=== PATIENT | male | born 1960 | race African-American/Black ===

== ENCOUNTER 2020-10-17 20:43 | Emergency (ER) | payer OTHER, SELFPAY ==
[2020-10-17] MEDS ORDERED: Lidocaine 4% Cream 5 GM TUBE w/ Tegaderm ONE (21:48)
== END 2020-10-17 23:54 | disposition left against medical advice (07) ==
LOC: MADERS 20:43
DX: S81.011A Laceration without foreign body, right knee, initial encounter (principal); S10.91XA Abrasion of unspecified part of neck, initial encounter; F17.210 Nicotine dependence, cigarettes, uncomplicated; I10 Essential (primary) hypertension; V89.2XXA Person injured in unspecified motor-vehicle accident, traffic, initial encounter
CPT/HCPCS: 70450; 71045; 72125; G0390

== ENCOUNTER 2020-10-19 09:58 | Emergency (ER) | payer OTHER, SELFPAY ==
[2020-10-19] MEDS ORDERED: HYDROcodone/Acetaminophen 5/325 mg Tablet ONE (11:33)
[2020-10-19] MEDS ORDERED: Sulfameth/Trimethoprim DS 800-160mg TAB ONE (11:44)
== END 2020-10-19 12:17 | disposition home or self-care (01) ==
LOC: MADERS 09:58
DX: S81.011A Laceration without foreign body, right knee, initial encounter (principal); S10.91XA Abrasion of unspecified part of neck, initial encounter; L03.221 Cellulitis of neck; M54.5 Low back pain; I10 Essential (primary) hypertension; F17.210 Nicotine dependence, cigarettes, uncomplicated; V89.2XXA Person injured in unspecified motor-vehicle accident, traffic, initial encounter
CPT/HCPCS: 71250; 74176